=== PATIENT | female | born 1940 | race Caucasian/White ===

== ENCOUNTER 2016-07-31 17:07 | Emergency (ER) | payer OTHER ==
[~2016-07-31] VITALS: Ht 165.1 cm; Wt 86.4 kg
[~2016-07-31 17:07] MED LIST: CITRTAB16 PO; GLUCTAB PO; LEVO112T2 PO; LISI-363 PO; LORTA5 PO; METO50TA PO; RIVA10 PO; Z.0.WALKERFRONT; ZOCO40TA PO
[2016-07-31 17:14] VITALS: BP 119/69; PULSE 82; RESP 16; TEMP 98.2; O2SAT 96
[2016-07-31 19:16] VITALS: BP_SYST 113; BP_SYST 114; BP_SYST 132; BP_DIAS 59; BP_DIAS 62; BP_DIAS 68; RESP 18
[2016-07-31] MEDS ORDERED: SIMV40TA PO (19:32)
[2016-07-31] MEDS ORDERED: METF500T PO (19:32)
[2016-07-31] MEDS ORDERED: LISI40TA PO (19:32)
[2016-07-31] MEDS ORDERED: LEVO112T2 PO (19:32)
[2016-07-31] MEDS ORDERED: METO50TA PO (19:32)
[2016-07-31] MEDS ORDERED: ASPI81TA81 (19:32)
--- NOTE | 2016-07-31 19:34 | PD ---
HPI Chief Complaint: Dizziness Time Seen by Provider: 19:30 Travel History International Travel<30 days: No Contact w/Intl Traveler<30days: No Traveled to known affect area: No History of Present Illness HPI This 75-year-old female says that for several months she's been having episodes where she feels lightheaded when she ends up for a while. She has a history of type 2 diabetes she also has hypertension and is on metoprolol and lisinopril. She has no history of heart disease and has no history of stroke. She has noted some slight swelling of her ankles. PFSH Past Medical History Hx Anticoagulant Therapy: Yes (asa 81mg) Cancer: Yes (UTERINE) Cardiovascular Problems: Yes (htn on meds) Diabetes: Yes (type 2) Patient Takes Glucophage: Yes Diminished Hearing: No Endocrine: Yes Genitourinary: No Hepatitis: No Hiatal Hernia: No Hypertension: Yes Immune Disorder: No Musculoskeletal: Yes (ARTHRITIS) Neurologic: No Psychiatric: No Reproductive: No Respiratory: No Immunizations Current: Yes Thyroid Disease: Yes Tetanus Vaccination: Unknown Influenza Vaccination: No ?: Not Menopausal: Yes Past Surgical History Abdominal Surgery: Yes (APPY) AICD: No Gynecologic Surgery: Yes (HYSTERECTOMY) Joint Replacement: No Pacemaker: No Other Surgery: Yes Social History Alcohol Use: Yes Tobacco Use: No Substance Use: No Allergies-Medications (Allergen,Severity, Reaction): Coded Allergies: No Known Allergies (Unverified , 07/31/16) Reported Meds & Prescriptions Reported Meds & Active Scripts Active Reported Aspir-81 (Aspirin) 81 Mg Tabdr Levothyroxine (Levothyroxine Sodium) 112 Mcg Tab 112 Mcg PO DAILY Lisinopril 40 Mg Tab 40 Mg PO DAILY Metoprolol Tartrate 50 Mg Tab 50 Mg PO DAILY Simvastatin 40 Mg Tab 40 Mg PO HS Metformin (Metformin HCl) 500 Mg Tab 500 Mg PO BIDPC With meals Review of Systems General / Constitutional: No: Fever, Chills Eyes: No: Blurred Vision HENT: Positive: Lightheadedness Cardiovascular: No: Chest Pain or Discomfort, Palpitations Respiratory: No: Shortness of Breath Gastrointestinal: No: Nausea, Vomiting Genitourinary: No: Urgency Musculoskeletal: No: Myalgias, Arthralgias Skin: No Rash Neurologic: Positive: Weakness, No: Dizziness, Syncope Endocrine: No: Heat Intolerance, Cold Intolerance Hematologic/Lymphatic: No: Easy Bruising Physical Exam Narrative GENERAL well-developed female SKIN: Warm and dry. HEAD: Atraumatic. Normocephalic. EYES: Pupils equal and round. No scleral icterus. No injection or drainage. ENT: No nasal bleeding or discharge. Mucous membranes pink and moist. NECK: Trachea midline. No JVD. CARDIOVASCULAR: Regular rate and rhythm. No murmur appreciated. RESPIRATORY: No accessory muscle use. Clear to auscultation. Breath sounds equal bilaterally. GASTROINTESTINAL: Abdomen soft, non-tender, nondistended. Hepatic and splenic margins not palpable. MUSCULOSKELETAL: No obvious deformities. No clubbing. No cyanosis. No edema. NEUROLOGICAL: Awake and alert. No obvious cranial nerve deficits. Motor grossly within normal limits. Normal speech. PSYCHIATRIC: Appropriate mood and affect; insight and judgment normal. Data Data Last Documented VS Vital Signs Date Time Temp Pulse Resp B/P Pulse Ox O2 Delivery O2 Flow Rate FiO2 07/31/16 21:10 71 18 96 Room Air 07/31/16 21:10 124/58 07/31/16 17:14 98.2 Orders Complete Blood Count With Diff (07/31/16 19:30) Basic Metabolic Panel (Bmp) (07/31/16 19:30) B-Type Natriuretic Peptide (07/31/16 19:30) Urinalysis - C+S If Indicated (07/31/16 19:30) Magnesium (Mg) (07/31/16 19:30) Thyroid Stimulating Hormone (07/31/16 19:30) Urine Culture (07/31/16 21:30) Labs Laboratory Tests Test 07/31/16 07/31/16 20:25 21:30 White Blood Count 11.2 TH/MM3 Red Blood Count 4.69 MIL/MM3 Hemoglobin 13.2 GM/DL Hematocrit 40.1 % Mean Corpuscular Volume 85.4 FL Mean Corpuscular Hemoglobin 28.1 PG Mean Corpuscular Hemoglobin 32.9 % Concent Red Cell Distribution Width 13.2 % Platelet Count 405 TH/MM3 Mean Platelet Volume 7.3 FL Neutrophils (%) (Auto) 62.4 % Lymphocytes (%) (Auto) 24.8 % Monocytes (%) (Auto) 5.8 % Eosinophils (%) (Auto) 5.3 % Basophils (%) (Auto) 1.7 % Neutrophils # (Auto) 7.0 TH/MM3 Lymphocytes # (Auto) 2.8 TH/MM3 Monocytes # (Auto) 0.6 TH/MM3 Eosinophils # (Auto) 0.6 TH/MM3 Basophils # (Auto) 0.2 TH/MM3 CBC Comment DIFF FINAL Differential Comment Sodium Level 140 MEQ/L Potassium Level 4.0 MEQ/L Chloride Level 105 MEQ/L Carbon Dioxide Level 25.5 MEQ/L Anion Gap 10 MEQ/L Blood Urea Nitrogen 21 MG/DL Creatinine 1.30 MG/DL Estimat Glomerular Filtration 40 ML/MIN Rate Random Glucose 100 MG/DL Calcium Level 9.6 MG/DL Magnesium Level 2.3 MG/DL B-Type Natriuretic Peptide 18 PG/ML Thyroid Stimulating Hormone 1.290 uIU/ML 3rd Gen Urine Color YELLOW Urine Turbidity CLEAR Urine pH 6.0 Urine Specific Mcdade 1.016 Urine Protein NEG mg/dL Urine Glucose (UA) NEG mg/dL Urine Ketones NEG mg/dL Urine Occult Blood NEG Urine Nitrite POS Urine Bilirubin NEG Urine Leukocyte Esterase TRACE Urine RBC 0-3 /hpf Urine WBC 25-49 /hpf Urine Squamous Epithelial 6-8 /hpf Cells Urine Bacteria MANY /hpf Microscopic Urinalysis Comment CULTURE INDICATED MDM Medical Decision Making Medical Screen Exam Complete: Yes Emergency Medical Condition: Yes Medical Record Reviewed: Yes Differential Diagnosis Differential includes orthostatic hypotension, adverse medication reaction, dehydration Narrative Course Orthostatic vital signs are normal. Lab work is unremarkable. Urine does show evidence of urinary tract infection. This will be treated though I suspect this is an incidental finding and not related to her chief complaint Diagnosis Primary Impression: Urinary tract infection Disposition: 01 DISCHARGE HOME Condition: Stable Talha Harkins MD Jul 31, 2016 19:34
[2016-07-31 20:00] VITALS: BP 132/60; PULSE 73; RESP 18; O2SAT 97
[2016-07-31 20:32] LABS: BASOPHIL # 0.2 TH/MM3 (0-0.2); BASOPHIL % 1.7 % (0.0-2.0); EOSINOPHIL # 0.6 TH/MM3 (0-0.4); EOSINOPHIL % 5.3 % (0.0-4.0); HEMATOCRIT 40.1 % (35.0-46.0); HEMO FLAGS DIFF FINAL; LYMPH % 24.8 % (9.0-44.0); LYMPHOCYTE # 2.8 TH/MM3 (1.0-4.8); MEAN CELL VOLUME 85.4 FL (80.0-100.0); MEAN CORPUSCULAR HEMOGLOBIN 28.1 PG (27.0-34.0); MEAN CORPUSCULAR HGB CONC 32.9 % (32.0-36.0); MONO % 5.8 % (0.0-8.0); NEUT % 62.4 % (16.0-70.0); PLATELET COUNT 405 TH/MM3 (150-450); RED BLOOD COUNT 4.69 MIL/MM3 (4.00-5.30); RED CELL DISTRIBUTION WIDTH 13.2 % (11.6-17.2); WHITE BLOOD COUNT 11.2 TH/MM3 (4.0-11.0)
[2016-07-31 21:03] LABS: BICARBONATE 25.5 MEQ/L (21.0-32.0); MAGNESIUM 2.3 MG/DL (1.5-2.5)
[2016-07-31 21:10] VITALS: BP 124/58; PULSE 71; RESP 18; O2SAT 96
[2016-07-31 21:42] LABS: BLOOD, URINE NEG (NEG); GLUCOSE,URINE NEG (NEG); KETONE, URINE NEG (NEG)
[2016-07-31 21:43] LABS: NITRITE,URINE POS (NEG)
[2016-07-31 21:49] LABS: URINE COLOR YELLOW (YELLW/STRAW)
[2016-07-31 21:50] LABS: BACTERIA, URINE MANY /hpf; COMMENT (UR) CULTURE INDICATED; CULTURE IF INDICATED CULTURE INDICATED; RBC, URINE 0-3 /hpf (0-3)
[2016-07-31] MEDS ORDERED: CEPH-460 PO (21:57)
[2016-07-31] MEDS ORDERED: CEPHALEXIN MONOHYDRATE 500 MG CAP PO ONE (22:00)
[2016-07-31 22:21] VITALS: BP 106/63
== END 2016-07-31 22:33 | disposition home or self-care (01) ==
LOC: PHED 17:07
DX: N39.0 Urinary tract infection, site not specified (principal); B96.89 Other specified bacterial agents as the cause of diseases classified elsewhere; I10 Essential (primary) hypertension; E11.9 Type 2 diabetes mellitus without complications; E07.9 Disorder of thyroid, unspecified; R42 Dizziness and giddiness; Z79.01 Long term (current) use of anticoagulants; R53.1 Weakness
CPT/HCPCS: 80048; 81001; 83735; 83880; 84443; 85025; 87077; 87086; 87186; 99284

== ENCOUNTER 2017-05-02 11:23 | Observation (INO) | payer OTHER ==
[2017-05-02] VITALS (9 sets, daily range): BP systolic 104–176; BP diastolic 56–78; PULSE 61–78; RESP 16–18; TEMP 96.8–98.9; O2SAT 95–98
[~2017-05-02] VITALS: Ht 165.1 cm; Wt 87.2 kg
[~2017-05-02 11:23] MED LIST changes: +ASPI81TA81; +CEPH-460 PO; -CITRTAB16 PO; -GLUCTAB PO; -LISI-363 PO; +LISI40TA PO; -LORTA5 PO; +METF500T PO; -RIVA10 PO; +SIMV40TA PO; -Z.0.WALKERFRONT; -ZOCO40TA PO
[2017-05-02] MEDS ORDERED: SODIUM CHLORIDE 0.9% FLUSH 10 ML FLUSH IVF PRN (11:30)
--- NOTE | 2017-05-02 11:42 | PD ---
HPI Chief Complaint: Neuro Symptoms/ Deficits Time Seen by Provider: 11:26 Travel History International Travel<30 days: No Contact w/Intl Traveler<30days: No Traveled to known affect area: No History of Present Illness HPI about an hour ago, patient experience an episode that lasted about 15minutes and fully resolved. during event "words came out but they didn't make any sense ", words were clearly pronunciated but were just "nonsense", this episodes sounds like a word salad episode. also patient had daughter as witness, who did not see any facial droop, any slurred speech or any body weakness requiring assistance for any reason. patient also recalls having something similar 7 years ago that was worked up in [facility] and told she had TIA. denies any h/o aneurysm...patient also denied any cabezas/visual changes/body weakness/slurred speech/cp/abdpain/back pain. chart and rn notes reviewed pcp dr beltran pmhx: dm, htn, tia, PFSH Past Medical History Hx Anticoagulant Therapy: Yes (asa 81mg) Cancer: Yes (UTERINE) Cardiovascular Problems: Yes (htn on meds) Diabetes: Yes (type 2) Diminished Hearing: No Endocrine: Yes Genitourinary: No Hepatitis: No Hiatal Hernia: No Hypertension: Yes Immune Disorder: No Musculoskeletal: Yes (ARTHRITIS) Neurologic: No Psychiatric: No Reproductive: No Respiratory: No Immunizations Current: Yes Thyroid Disease: Yes Menopausal: Yes Past Surgical History Abdominal Surgery: Yes (APPY) AICD: No Gynecologic Surgery: Yes (HYSTERECTOMY) Joint Replacement: No Pacemaker: No Other Surgery: Yes Social History Alcohol Use: Yes Tobacco Use: No Substance Use: No Allergies-Medications (Allergen,Severity, Reaction): Coded Allergies: No Known Allergies (Unverified Adverse Reaction, Unknown, 05/02/17) Reported Meds & Prescriptions Reported Meds & Active Scripts Active Reported Aspir-81 (Aspirin) 81 Mg Tabdr Levothyroxine (Levothyroxine Sodium) 112 Mcg Tab 112 Mcg PO DAILY Lisinopril 40 Mg Tab 40 Mg PO DAILY Metoprolol Tartrate 50 Mg Tab 50 Mg PO DAILY Metformin (Metformin HCl) 500 Mg Tab 500 Mg PO BIDPC With meals Review of Systems Except as stated in HPI: all other systems reviewed are Neg General / Constitutional: No: Fever Eyes: No: Visual changes HENT: No: Headaches Cardiovascular: No: Chest Pain or Discomfort Respiratory: No: Shortness of Breath Gastrointestinal: No: Abdominal Pain Genitourinary: No: Dysuria Musculoskeletal: No: Pain Skin: No Rash Neurologic: Positive: Other (see hpi) Psychiatric: No: Depression Endocrine: No: Polydipsia Hematologic/Lymphatic: No: Easy Bruising Physical Exam Narrative GENERAL: SKIN: Warm and dry. HEAD: Atraumatic. Normocephalic. EYES: Pupils equal and round. No scleral icterus. No injection or drainage. ENT: No nasal bleeding or discharge. Mucous membranes pink and moist. NECK: Trachea midline. No JVD. CARDIOVASCULAR: Regular rate and rhythm. RESPIRATORY: No accessory muscle use. Clear to auscultation. Breath sounds equal bilaterally. GASTROINTESTINAL: Abdomen soft, non-tender, nondistended. MUSCULOSKELETAL: Extremities without clubbing, cyanosis, or edema. No obvious deformities. NEUROLOGICAL: Awake and alert. No obvious cranial nerve deficits. Motor grossly within normal limits. Five out of 5 muscle strength in the arms and legs. Normal speech. PSYCHIATRIC: Appropriate mood and affect; insight and judgment normal. Data Data Last Documented VS Vital Signs Date Time Temp Pulse Resp B/P (MAP) Pulse Ox O2 Delivery O2 Flow Rate FiO2 05/02/17 12:34 61 18 132/74 (93) 96 Room Air 05/02/17 11:33 98.0 Orders Orders Electrocardiogram (05/02/17 11:26) Prothrombin Time / Inr (Pt) (05/02/17 11:26) Act Partial Throm Time (Ptt) (05/02/17 11:26) Complete Blood Count With Diff (05/02/17 11:26) Comprehensive Metabolic Panel (05/02/17 11:26) Troponin I (05/02/17 11:26) Urinalysis - C+S If Indicated (05/02/17 11:26) Ct Brain W/O Iv Contrast(Rout) (05/02/17 11:26) Chest, Single Ap (05/02/17 11:26) Ecg Monitoring (05/02/17 11:26) Iv Access Insert/Monitor (05/02/17 11:26) Oximetry (05/02/17 11:26) Blood Glucose (05/02/17 11:26) Sodium Chloride 0.9% Flush (Ns Flush) (05/02/17 11:30) Place In Observation (05/02/17 ) Vital Signs (Adult) LUIS ANGEL.Q4H (05/02/17 12:49) Bin Worker / Telemetry LUIS ANGEL.Q8H (05/02/17 12:49) Admit Order (Ed Use Only) (05/02/17 12:51) Labs Laboratory Tests Test 05/02/17 11:45 White Blood Count 8.1 TH/MM3 Red Blood Count 4.44 MIL/MM3 Hemoglobin 12.5 GM/DL Hematocrit 37.8 % Mean Corpuscular Volume 85.2 FL Mean Corpuscular Hemoglobin 28.1 PG Mean Corpuscular Hemoglobin Concent 32.9 % Red Cell Distribution Width 13.4 % Platelet Count 377 TH/MM3 Mean Platelet Volume 7.3 FL Neutrophils (%) (Auto) 60.2 % Lymphocytes (%) (Auto) 23.2 % Monocytes (%) (Auto) 8.1 % Eosinophils (%) (Auto) 7.2 % Basophils (%) (Auto) 1.3 % Neutrophils # (Auto) 4.8 TH/MM3 Lymphocytes # (Auto) 1.9 TH/MM3 Monocytes # (Auto) 0.7 TH/MM3 Eosinophils # (Auto) 0.6 TH/MM3 Basophils # (Auto) 0.1 TH/MM3 CBC Comment DIFF FINAL Differential Comment Prothrombin Time 9.9 SEC Prothromb Time International Ratio 1.0 RATIO Activated Partial Thromboplast Time 25.0 SEC Blood Urea Nitrogen 18 MG/DL Creatinine 1.10 MG/DL Random Glucose 80 MG/DL Total Protein 7.8 GM/DL Albumin 3.6 GM/DL Calcium Level 8.8 MG/DL Alkaline Phosphatase 75 U/L Aspartate Amino Transf (AST/SGOT) 18 U/L Alanine Aminotransferase (ALT/SGPT) 24 U/L Total Bilirubin 0.4 MG/DL Sodium Level 137 MEQ/L Potassium Level 4.1 MEQ/L Chloride Level 104 MEQ/L Carbon Dioxide Level 25.8 MEQ/L Anion Gap 7 MEQ/L Estimat Glomerular Filtration Rate 48 ML/MIN Troponin I LESS THAN 0.02 NG/ML MDM Medical Decision Making Medical Screen Exam Complete: Yes Emergency Medical Condition: Yes Medical Record Reviewed: Yes Differential Diagnosis ich v tia v electrolyte abnl v atypical stemi Narrative Course neg troponin, nl elecctrolyte, and ct neg for ich or major ischemic cva. patient will be admittted for further evaluation of suspicious [facility] site tia Diagnosis Primary Impression: TIA (suspect [facility]) Admitting Information Admitting Physician Requests: Observation Scripts Atorvastatin (Lipitor) 40 Mg Tab 40 MG PO HS for Cholesterol Management, #30 TAB 0 Refills Prov: Ziggy Tovar MD 05/03/17 Kenndey Ferrera MD May 02, 2017 11:42
[2017-05-02 11:50] LABS: AUTOMATED NEUTROPHIL # 4.8 TH/MM3 (1.8-7.7); BASOPHIL # 0.1 TH/MM3 (0-0.2); BASOPHIL % 1.3 % (0.0-2.0); EOSINOPHIL # 0.6 TH/MM3 (0-0.4); EOSINOPHIL % 7.2 % (0.0-4.0); HEMATOCRIT 37.8 % (35.0-46.0); HEMO FLAGS DIFF FINAL; LYMPH % 23.2 % (9.0-44.0); LYMPHOCYTE # 1.9 TH/MM3 (1.0-4.8); MEAN CELL VOLUME 85.2 FL (80.0-100.0); MEAN CORPUSCULAR HEMOGLOBIN 28.1 PG (27.0-34.0); MEAN CORPUSCULAR HGB CONC 32.9 % (32.0-36.0); MONO % 8.1 % (0.0-8.0); NEUT % 60.2 % (16.0-70.0); PLATELET COUNT 377 TH/MM3 (150-450); RED BLOOD COUNT 4.44 MIL/MM3 (4.00-5.30); RED CELL DISTRIBUTION WIDTH 13.4 % (11.6-17.2); WHITE BLOOD COUNT 8.1 TH/MM3 (4.0-11.0)
--- NOTE | 2017-05-02 11:56 | RADRPT ---
EXAM DATE/TIME: 05/02/2017 11:40 [facility] COMPARISON: No previous studies available for comparison. INDICATIONS : Sudden onset of slurred speech today. TIA MEDICAL HISTORY : None. SURGICAL HISTORY : None. ENCOUNTER: Initial ACUITY: 1 day PAIN SCORE: 0/10 LOCATION: Bilateral chest FINDINGS: A single view of the chest demonstrates the lungs to be symmetrically aerated without evidence of mas s, infiltrate or effusion. There is chronic interstitial changes bilaterally. There is mild elevation of the right hemidiaphragm. The cardiomediastinal contours are unremarkable. Osseous structures are intact. CONCLUSION: No acute disease. Chronic interstitial changes bilaterally. Irvin Fleming MD on May 02, 2017 at 11:53 Board Certified Radiologist. This report was verified electronically.
[2017-05-02 12:00] LABS: CHLORIDE 104 MEQ/L (98-107); POTASSIUM 4.1 MEQ/L (3.5-5.1); SODIUM (NA) 137 MEQ/L (136-145)
--- NOTE | 2017-05-02 12:01 | RADRPT ---
EXAM DATE/TIME: 05/02/2017 11:45 [facility] COMPARISON: No previous studies available for comparison. INDICATIONS : Difficulty speaking. RADIATION DOSE: 61.70 CTDIvol (mGy) MEDICAL HISTORY : Cerebrovascular disease. Hypertension. Uterine cancer. SURGICAL HISTORY : Appendectomy. Hysterectomy. ENCOUNTER: Initial ACUITY: 1 day PAIN SCALE: 0/10 LOCATION: cranial TECHNIQUE: Multiple contiguous axial images were obtained of the head. Using automated exposure control and adj ustment of the mA and/or kV according to patient size, radiation dose was kept as low as reasonably a chievable to obtain optimal diagnostic quality images. DICOM format image data is available electro nically for review and comparison. FINDINGS: CEREBRUM: The ventricles are normal for age. No evidence of midline shift, mass lesion, hemorrhage or acute in farction. No extra-axial fluid collections are seen. POSTERIOR FOSSA: The cerebellum and brainstem are intact. The 4th ventricle is midline. The cerebellopontine angle i s unremarkable. EXTRACRANIAL: The visualized portion of the orbits is intact. SKULL: The calvaria is intact. No evidence of skull fracture. CONCLUSION: Negative noncontrast head CT. Rinku Woodward MD on May 02, 2017 at 11:59 Board Certified Radiologist. This report was verified electronically.
[2017-05-02 12:04] LABS: ANION GAP 7 MEQ/L (5-15); BICARBONATE 25.8 MEQ/L (21.0-32.0); BLOOD UREA NITROGEN 18 MG/DL (7-18); PROTHROMBIN TIME - PATIENT 9.9 SEC (9.8-11.6)
[2017-05-02 12:07] LABS: ALT (GPT) 24 U/L (10-53); AST (GOT) 18 U/L (15-37); GLOMERULAR FILTRATION RATE 48 ML/MIN (>89)
[2017-05-02 12:09] LABS: TOTAL BILIRUBIN ADULT 0.4 MG/DL (0.2-1.0)
[2017-05-02 12:10] LABS: ALKALINE PHOSPHATASE 75 U/L (45-117)
--- NOTE | 2017-05-02 14:10 | HHI.HP ---
[facility] Donna Gale MD Admission Diagnosis TIA Diagnoses: (1) TIA (transient ischemic attack) Chief Complaint: Incoherent speech Travel History International Travel<30 Days: No Contact w/Intl Traveler <30 Da: No Traveled to Known Affected Are: No History of Present Illness 76-year-old white male being admitted for strokelike symptoms. Patient was in her usual state of health until earlier this morning when she noted she had difficulty repeating a sentence on her Facebook. Sometime after that while being with her daughter she tried to verbalize some words to her but realized she was not making sense. Her daughter who is at the bedside says that she made sounds but was unable to verbalize any decipherable audible words. Patient denies having any nausea vomiting. Reports having had a very mild headache at best. He does report feeling just slightly lightheaded. Denies any acute visual disturbances. She states that intermittently over the past couple months she would have a little trouble walking where she says she would appear like a "drunk" that would spontaneously resolve. She thinks a couple years ago she went to an emergency room and they might have diagnosed her with a transient ischemic attack but she is not certain. Denies ever having undergone an MRI in the past. Review of Systems Except as stated in HPI: all other systems reviewed are Neg Past Family Social History Past Medical History Breast cancer Past Surgical History Left lumpectomy, right breast cyst removal, left knee surgery, left eye cataract surgery Allergies: Coded Allergies: No Known Allergies (Unverified Adverse Reaction, Unknown, 05/02/17) Family History Pancreatic cancer in father, kidney stones in mother, no family history of strokes or neurological illnesses or seizures Social History Used to smoke since her teenage years up until 40 years ago, reports very light alcohol drinking, no illicit drug use Physical Exam Vital Signs Vital Signs Date Time Temp Pulse Resp B/P (MAP) Pulse Ox O2 Delivery O2 Flow Rate FiO2 05/02/17 13:44 63 18 138/78 (98) 96 05/02/17 12:34 61 18 132/74 (93) 96 Room Air 05/02/17 12:05 64 18 158/74 (102) 97 Room Air 05/02/17 11:35 97 Room Air 05/02/17 11:35 Room Air 05/02/17 11:33 98.0 78 16 176/77 (110) 97 Physical Exam VS: Afebrile GENERAL: Elderly white female, overweight, well-nourished, no acute distress SKIN: Warm and dry. EYES: Pupils equal and round. No scleral icterus. No injection or drainage. ENT: No nasal bleeding or discharge. Mucous membranes pink and moist. CARDIOVASCULAR: Regular rate and rhythm. no murmurs RESPIRATORY: No accessory muscle use. Clear to auscultation. Breath sounds equal bilaterally. GASTROINTESTINAL: Abdomen soft, non-tender, nondistended. Extremities: No clubbing, cyanosis, or edema. No obvious deformities. MUSCULOSKELETAL: No obvious deformities. grossly intact ROM with 5/5 strength in upper and lower extremities proximally NEUROLOGICAL: Awake and alert. No obvious cranial nerve deficits. No facial droop nor slurred speech noted. Intact patellar reflexes +2 bilaterally. Intact sensation to light finger touch symmetrically on face upper extremities and distal lower extremities. PSYCHIATRIC: Appropriate mood and affect; insight and judgment normal. Laboratory Laboratory Tests Test 05/02/17 11:45 White Blood Count 8.1 Red Blood Count 4.44 Hemoglobin 12.5 Hematocrit 37.8 Mean Corpuscular Volume 85.2 Mean Corpuscular Hemoglobin 28.1 Mean Corpuscular Hemoglobin Concent 32.9 Red Cell Distribution Width 13.4 Platelet Count 377 Mean Platelet Volume 7.3 Neutrophils (%) (Auto) 60.2 Lymphocytes (%) (Auto) 23.2 Monocytes (%) (Auto) 8.1 Eosinophils (%) (Auto) 7.2 Basophils (%) (Auto) 1.3 Neutrophils # (Auto) 4.8 Lymphocytes # (Auto) 1.9 Monocytes # (Auto) 0.7 Eosinophils # (Auto) 0.6 Basophils # (Auto) 0.1 CBC Comment DIFF FINAL Differential Comment Prothrombin Time 9.9 Prothromb Time International Ratio 1.0 Activated Partial Thromboplast Time 25.0 Blood Urea Nitrogen 18 Creatinine 1.10 Random Glucose 80 Total Protein 7.8 Albumin 3.6 Calcium Level 8.8 Alkaline Phosphatase 75 Aspartate Amino Transf (AST/SGOT) 18 Alanine Aminotransferase (ALT/SGPT) 24 Total Bilirubin 0.4 Sodium Level 137 Potassium Level 4.1 Chloride Level 104 Carbon Dioxide Level 25.8 Anion Gap 7 Estimat Glomerular Filtration Rate 48 Troponin I LESS THAN 0.02 Result Diagram: 05/02/17 1145 05/02/17 1145 Imaging Last Impressions Head CT 05/02/17 1126 Signed Impressions: Service Date/Time: Tuesday, May 02, 2017 11:45 - CONCLUSION: Negative noncontrast head CT. Rinku Woodward MD Chest X-Ray 05/02/17 1126 Signed Impressions: Service Date/Time: Tuesday, May 02, 2017 11:40 - CONCLUSION: No acute disease. Chronic interstitial changes bilaterally. Irvin Fleming MD Caphitesh VTE Risk Assessment Caprini VTE Risk Assessment: Mod/High Risk (score >= 2) Caprini Risk Assessment Model Point Value = 1 Point Value = 2 Point Value = 3 Point Value = 5 Age 41-60 Minor surgery BMI > 25 kg/m2 Swollen legs Varicose veins or History of unexplained or recurrent spontaneous Oral contraceptives or hormone replacement Sepsis (< 1 month) Serious lung disease, including pneumonia (< 1 month) Abnormal pulmonary function Acute myocardial infarction Congestive heart failure (< 1 month) History of inflammatory bowel disease Medical patient at bed rest Age 61-74 Arthroscopic surgery Major open surgery (> 45 min) Laparoscopic surgery (> 45 min) Malignancy Confined to bed (> 72 hours) Immobilizing plaster cast Central venous access Age >= 75 History of VTE Family history of VTE Factor V Leiden Prothrombin [id number] Lupus anticoagulant Anticardiolipin antibodies Elevated serum homocysteine Heparin-induced thrombocytopenia Other congenital or acquired thrombophilia Stroke (< 1 month) Elective arthroplasty Hip, pelvis, or leg fracture Acute spinal cord injury (< 1 month) Prophylaxis Regimen Total Risk Factor Score Risk Level Prophylaxis Regimen 0-1 Low Early ambulation 2 Moderate Order ONE of the following: *Sequential Compression Device (SCD) *Heparin 5000 units SQ BID 3-4 Higher Order ONE of the following medications: *Heparin 5000 units SQ TID *Enoxaparin/Lovenox 40 mg SQ daily (WT < 150 kg, CrCl > 30 mL/min) *Enoxaparin/Lovenox 30 mg SQ daily (WT < 150 kg, CrCl > 10-29 mL/min) *Enoxaparin/Lovenox 30 mg SQ BID (WT < 150 kg, CrCl > 30 mL/min) AND/OR *Sequential Compression Device (SCD) 5 or more Highest Order ONE of the following medications: *Heparin 5000 units SQ TID (Preferred with Epidurals) *Enoxaparin/Lovenox 40 mg SQ daily (WT < 150 kg, CrCl > 30 mL/min) *Enoxaparin/Lovenox 30 mg SQ daily (WT < 150 kg, CrCl > 10-29 mL/min) *Enoxaparin/Lovenox 30 mg SQ BID (WT < 150 kg, CrCl > 30 mL/min) AND *Sequential Compression Device (SCD) Assessment and Plan Assessment and Plan 76-year-old white female being admitted for strokelike symptoms Strokelike symptoms - Currently have resolved suggestive of TIA - We'll engage in permissive hypertension - MRI of the head, carotid Doppler ultrasound, echocardiogram - Mid to high dose aspirin, high-dose Lipitor - Fall precautions - fall precautions, ST/OT/PT - independent review of EKG shows NSR Hypertension - Holding home metoprolol and lisinopril in light of strokelike symptoms DM - LDSS w/ accuchecks Hypothyroidism - Continue home Synthroid Lovenox for dvt prevention Ziggy Tovar MD May 02, 2017 14:10
[2017-05-02] MEDS ORDERED: GLUCAGON 1 MG/ML VIAL OTHER PRN (14:15)
[2017-05-02] MEDS ORDERED: DEXTROSE 50% IN WATER 50 ML VIAL(D50) IV PUSH PRN (14:15)
[2017-05-02] MEDS ORDERED: ATORVASTATIN 40 MG TAB PO ONE (14:15)
[2017-05-02] MEDS ORDERED: ASPIRIN 325 MG TAB PO ONE (14:30)
[2017-05-02 14:44] LABS: BLOOD, URINE NEG (NEG); GLUCOSE,URINE NEG (NEG); KETONE, URINE NEG (NEG); NITRITE,URINE NEG (NEG); PH, URINE 5.5 (5.0-8.5)
[2017-05-02 14:47] LABS: METHOD OF COLLECTION CATH; URINE COLOR STRAW (YELLW/STRAW)
[2017-05-02 14:48] LABS: COMMENT (UR) CULT NOT INDICATED; CULTURE IF INDICATED CULT NOT INDICATED; WBC, URINE 0-2 /hpf (0-5)
[2017-05-02] MEDS ORDERED: ENOXAPARIN SODIUM 30 MG/0.3 ML SYRINGE SQ SCH (16:00)
[2017-05-02] MEDS ORDERED: ENALAPRILAT 1.25 MG/ML VIAL IV PUSH PRN (16:30)
--- NOTE | 2017-05-02 16:30 | RADRPT ---
EXAM DATE/TIME: 05/02/2017 15:28 [facility] COMPARISON: No previous studies available for comparison. INDICATIONS : Transient ischemic attack. MEDICAL HISTORY : Hypertension. Arthritis. Thyroid disease. Diabetes. Uterine cancer. Urinary tract infection. SURGICAL HISTORY : Appendectomy. Hysterectomy. Arthroscopy. Left eye cataract removal. ENCOUNTER: Initial ACUITY: 1 day PAIN SCORE: 0/10 LOCATION: Bilateral neck PEAK SYSTOLIC VELOCITIES (cm/sec): ICA/CCA RATIO: Right: 1.0 Left: 1.2 ICA: Right: 78 Left: 120 CCA: Right: 80 Left: 98 ECA: Right: 58 Left: 97 VERTEBRAL: Right: 34 antegrade Left: 72 antegrade Elevated flow velocities and ICA/CCA ratios have been found to correlate with increased degrees of vessel stenosis, calculated as percentage of diameter relative to a normal segment of distal ICA/CCA FINDINGS: RIGHT CAROTID: Mild atherosclerotic plaquing at the bifurcation. No significant stenosis is visualized. The wavefor ms are within normal limits. LEFT CAROTID: Mild atherosclerotic plaquing at the bifurcation. No significant stenosis is visualized. The wavefor ms are within normal limits. VERTEBRAL ARTERIES: Antegrade flow is seen in both vertebral arteries. MISCELLANEOUS: None. CONCLUSION: Mild atherosclerotic plaquing at the carotid bifurcations bilaterally. No focal high-grade or hemodyn amically significant stenosis. Irvin Fleming MD on May 02, 2017 at 16:27 Board Certified Radiologist. This report was verified electronically.
--- NOTE | 2017-05-02 16:47 | ECHRPT ---
Indication: CVA/TIA CONCLUSIONS The left ventricular systolic function is normal with an estimated ejection fraction in the range of 55-60%. Doppler parameters are consistent with impaired left ventricular relaxtion (grade 1 diastolic dysfun ction). Mild mitral valve regurgitation. There is trace to mild tricuspid valve regurgitation. BP: / HR: Rhythm: MEASUREMENTS (Male / Female) Normal Values Technical Quality:Good 2D ECHO LV Diastolic Diameter PLAX 4.7 cm 4.2 - 5.9 / 3.9 - 5.3 cm LV Systolic Diameter PLAX 3.5 cm IVS Diastolic Thickness 1.1 cm 0.6 - 1.0 / 0.6 - 0.9 cm LVPW Diastolic Thickness 0.6 cm 0.6 - 1.0 / 0.6 - 0.9 cm LV Relative Wall Thickness 0.4 RV Internal Dim ED PLAX 1.7 cm LA Systolic Diameter LX 3.6 cm 3.0 - 4.0 / 2.7 - 3.8 cm M-MODE Aortic Root Diameter MM 2.9 cm AV Cusp Separation MM 1.8 cm DOPPLER MR Peak Velocity 422.0 cm/s MR Peak Gradient 71.2 mmHg Mitral E Point Velocity 51.3 cm/s Mitral A Point Velocity 75.0 cm/s Mitral E to A Ratio 0.7 TR Peak Velocity 269.0 cm/s TR Peak Gradient 28.9 mmHg FINDINGS LEFT VENTRICLE Normal left ventricular size. Wall thickness is measured at the upper limits of normal. The left ventricular systolic function is normal with an estimated ejection fraction in the range of 55-60%. Doppler parameters are consistent with impaired left ventricular relaxtion (grade 1 diastolic dysfun ction). RIGHT VENTRICLE Normal right ventricular size and systolic function. LEFT ATRIUM The left atrial size is normal. RIGHT ATRIUM The right atrial size is normal. ATRIAL SEPTUM Normal atrial septal thickness. AORTA The aortic root and proximal ascending aorta are normal in size on limited imaging. MITRAL VALVE Mild mitral annular calcification is present. Mild mitral valve regurgitation. No mitral valve stenosis. AORTIC VALVE Trileaflet aortic valve. No aortic valve stenosis or regurgitation. TRICUSPID VALVE Structurally normal tricuspid valve. No tricuspid valve stenosis. There is trace to mild tricuspid valve regurgitation. PULMONARY VALVE The pulmonary valve is not well visualized. VESSELS The inferior vena cava is normal in size. PERICARDIUM No pericardial effusion. Jack Mattson DO (Electronically Signed) Final Date:02 May 2017 16:46
[2017-05-02] MEDS: INSULIN NovoLIN REGULAR SUPPLEMENTAL SCALE SQ SCH ×2 (17:00→21:00)
--- NOTE | 2017-05-02 17:25 | RADRPT ---
EXAM DATE/TIME: 05/02/2017 16:43 [facility] COMPARISON: CT BRAIN W/O CONTRAST, May 02, 2017, 11:45. INDICATIONS : TIA. Difficulty speaking. MEDICAL HISTORY : Hypertension. Carcinoma, breast. Diabetes mellitus type 2. SURGICAL HISTORY : Total knee replacement, left. Appendectomy. Hysterectomy. Tonsilectomy. Left breast lumpectomy. ENCOUNTER: Initial ACUITY: 1 day PAIN SCORE: 0/10 LOCATION: cranial TECHNIQUE: Multiplanar, multisequence MRI of the brain was performed without contrast. FINDINGS: CEREBRUM: The ventricles are normal for age. No evidence of midline shift, mass lesion, hemorrhage or acute in farction. No extraaxial fluid collections are seen. The pituitary gland and suprasellar cistern are normal in configuration. WHITE MATTER: There are multiple small focal areas of signal abnormality seen throughout the cerebral white matter. POSTERIOR FOSSA: The cerebellum and brainstem are intact. The 4th ventricle is midline. The cerebellopontine angle is unremarkable. The cerebellar tonsils are normal in position. DIFFUSION IMAGING: No focal areas of restricted diffusion are seen. No evidence of acute infarction. EXTRACRANIAL: The visualized portions of the orbits and paranasal sinuses are unremarkable. CONCLUSION: 1. No acute abnormality seen. 2. Multiple focal areas of demyelination. These are nonspecific. They frequently are secondary to sma ll vessel ischemic change. Rinku Aleman MD on May 02, 2017 at 17:20 Board Certified Radiologist. This report was verified electronically.
[2017-05-03] VITALS: BP 95/50; PULSE 70; RESP 16; TEMP 98.9; O2SAT 97
[2017-05-03 04:00] VITALS: BP 144/65; PULSE 65; RESP 16; TEMP 98.9; O2SAT 97
[2017-05-03] MEDS ORDERED: LEVOTHYROXINE SODIUM 112 MCG TAB PO SCH (06:00)
[2017-05-03 07:15] VITALS: PULSE 71
[2017-05-03 08:00] VITALS: BP 123/57; PULSE 63; RESP 16; TEMP 97.2; O2SAT 97
[2017-05-03] MEDS: INSULIN NovoLIN REGULAR SUPPLEMENTAL SCALE SQ SCH (08:00)
[2017-05-03] MEDS ORDERED: ASPIRIN 325 MG TAB PO SCH (09:00)
[2017-05-03] MEDS ORDERED: LIPI40TA PO (09:44)
--- NOTE | 2017-05-03 09:45 | HHI.DCPOC ---
Discharge Care Plan Diagnosis: (1) TIA (transient ischemic attack) Goals to Promote Your Health * To prevent worsening of your condition and complications * To maintain your health at the optimal level Directions to Meet Your Goals Take your medications as prescribed Follow your dietary instruction Follow activity as directed Keep your appointments as scheduled Take your immunizations and boosters as scheduled If your symptoms worsen call your PCP, if no PCP go to Urgent Care Center or Emergency Room Smoking is Dangerous to Your Health. Avoid second hand smoke Call the 24-hour hour crisis hotline for domestic abuse at Ziggy Tovar MD May 03, 2017 09:45
--- NOTE | 2017-05-03 10:39 | HHI.PR ---
Subjective Remarks Nursing denies any deterioration since last night. Patient herself denies any recurrence of her symptoms of difficulty thinking or difficulty with speech. Feels okay. Objective Vital Signs Date Time Temp Pulse Resp B/P (MAP) Pulse Ox O2 Delivery O2 Flow Rate FiO2 05/03/17 08:00 97.2 63 16 123/57 (79) 97 05/03/17 07:15 71 05/03/17 04:00 98.9 65 16 144/65 (91) 97 05/03/17 00:00 98.9 70 16 95/50 (65) 97 05/02/17 21:00 70 05/02/17 20:00 98.9 73 16 104/56 (72) 95 05/02/17 16:00 96.8 62 18 154/69 (97) 98 05/02/17 14:37 63 05/02/17 13:44 63 18 138/78 (98) 96 05/02/17 12:34 61 18 132/74 (93) 96 Room Air 05/02/17 12:05 64 18 158/74 (102) 97 Room Air 05/02/17 11:35 97 Room Air 05/02/17 11:35 Room Air 05/02/17 11:33 98.0 78 16 176/77 (110) 97 Result Diagram: 05/02/17 1145 05/02/17 1145 Objective Remarks No facial droop, no slurred speech, extraocular motions intact, 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 She will continue to take her home baby aspirin at 81 mg as a studies of shown that there is no significant benefit with the 325 mg over the baby dose except for worse side effects. Patient has met maximal benefit from hospitalization and is clinically stable for discharge. Ziggy Tovar MD May 03, 2017 10:39
--- NOTE | 2017-05-03 17:43 | EKG ---
Date Performed: 05/02/2017 Time Performed: 12:01:29 PTAGE: 76 years EKG: Sinus rhythm WITH OCCASIONAL VENTRICULAR PREMATURE COMPLEXES MARKED LEFT AXIS DEVIATION POSSIBLE RIGHT VENTRICULA R CONDUCTION DELAY ABNORMAL ECG NO PREVIOUS TRACING DOCTOR: Karthik Naik Interpretating Date/Time 05/03/2017 17:42:47
[2017-05-03] MEDS ORDERED: ATORVASTATIN 40 MG TAB PO SCH (21:00)
== END 2017-05-03 11:48 | disposition home or self-care (01) ==
LOC: PHED 11:23 → PHEDA 12:52 → PH3A 14:26
PROVIDERS: ADMIT Hospitalist; ATTEND Hospitalist
DX: R29.818 Other symptoms and signs involving the nervous system (principal); I10 Essential (primary) hypertension; E11.9 Type 2 diabetes mellitus without complications; E07.9 Disorder of thyroid, unspecified; R26.2 Difficulty in walking, not elsewhere classified; E03.9 Hypothyroidism, unspecified; R94.31 Abnormal electrocardiogram [ECG] [EKG]; I65.23 Occlusion and stenosis of bilateral carotid arteries; Z85.3 Personal history of malignant neoplasm of breast; Z79.82 Long term (current) use of aspirin; Z79.84 Long term (current) use of oral hypoglycemic drugs
CPT/HCPCS: 70450; 70551; 71010; 80053; 80061; 81001; 82948; 84484; 85025; 85610; 85730; 93005; 93306; 93880; 96125; 97162; 99285; G0378; G8987; G8988; J1650